=== PATIENT | female | born 1955 | race Caucasian/White ===

== ENCOUNTER 2018-05-21 13:00 | Emergency (ER) | payer MEDICAID ==
[2018-05-21] MEDS ORDERED: FLUCONAZOLE 100 MG TAB ONE (13:39)
[2018-05-21] MEDS ORDERED: SMZ./TMP. 800/160 MG TABLET ONE (13:39)
--- NOTE | 2018-05-21 13:55 | ER ---
Nurse's Notes [facility] Name: Sulema Calderón Age: 62 yrs Sex: Female : 1955 Arrival Date: 05/21/2018 Time: 13:02 Bed 30 Private MD: Out, [facility] Diagnosis: Fungal infection of skin;Cellulitis of left lower limb Presentation: 05/21 13:07 Presenting complaint: Patient states: Left foot swelling since yesterday with redness aj to top of foot. Transition of care: patient was not received from another setting of care. Onset of symptoms was May 21, 2018. Risk Assessment: Do you want to hurt yourself or someone else? Patient reports no desire to harm self or others. Initial Sepsis Screen: Does the patient meet any 2 criteria? No. Patient's initial sepsis screen is negative. Does the patient have a suspected source of infection? No. Patient's initial sepsis screen is negative. Care prior to arrival: None. 13:07 Method Of Arrival: Ambulatory 13:07 Acuity: WILFREDO 3 aj Triage Assessment: 13:10 General: Appears in no apparent distress. comfortable, obese, Behavior is calm, aj cooperative, appropriate for age. Pain: Denies pain. Neuro: Level of Consciousness is awake, alert, obeys commands, Oriented to person, place, time, situation, Appropriate for age. Respiratory: Airway is patent Respiratory effort is even, unlabored, Respiratory pattern is regular, symmetrical. Derm: Skin is pink, warm \T\ dry. normal. Musculoskeletal: Swelling present in left leg. Historical: - Allergies: 13:10 No Known Allergies; aj - Home Meds: 13:10 triamterene-hydrochlorothiazid 37.5-25 mg Oral cap 1 cap once daily [Active]; celecoxib aj 200 mg Oral cap 1 cap once daily [Active]; amlodipine 5 mg tab 1 tab once daily [Active]; levothyroxine 137 mcg tab 1 tab once daily [Active]; aspirin 81 mg Oral TbEC 1 tab once daily [Active]; oxybutynin chloride 5 mg Oral tr24 1 tab once daily [Active]; - PMHx: 13:10 Hypertension; Hypothyroidism; aj - PSHx: 13:10 Hysterectomy; Carpal Tunnel Repair; Cholecystectomy; Lap band and removal; aj - Immunization history:: Adult Immunizations up to date. - Social history:: Smoking status: Patient/guardian denies using tobacco. - Ebola Screening: : Patient negative for fever greater than or equal to 101.5 degrees Fahrenheit, and additional compatible Ebola Virus Disease symptoms Patient denies exposure to infectious person Patient denies travel to an Ebola-affected area in the 21 days before illness onset No symptoms or risks identified at this time. - Family history:: not pertinent. - Hospitalizations: : No recent hospitalization is reported. Screenin:21 Abuse screen: Denies threats or abuse. Denies injuries from another. Nutritional ca1 screening: No deficits noted. Tuberculosis screening: No symptoms or risk factors identified. Fall Risk Ambulatory Aid- Crutches/Cane/Walker (15 pts). Assessment: 13:21 General: Appears in no apparent distress. obese. General: Behavior is calm, ca1 cooperative, appropriate for age. Pain: Denies pain. Pain: Denies pain. Complains of pain in left leg Pain currently is 2 out of 10 on a pain scale. Neuro: Level of Consciousness is awake, alert, obeys commands, Oriented to person, place, time, situation. Cardiovascular: Heart tones S1 S2 present Capillary refill < 3 seconds. Respiratory: Airway is patent Respiratory effort is even, unlabored, Respiratory pattern is regular, symmetrical, Breath sounds are clear bilaterally. GI: No signs and/or symptoms were reported involving the gastrointestinal system. : No signs and/or symptoms were reported regarding the genitourinary system. EENT: No signs and/or symptoms were reported regarding the EENT system. Derm: Skin Skin is pink, warm \T\ dry. Rash noted that is on left foor red circles with clear center. Fungal looking rash. Musculoskeletal: Swelling present in right foot, left foot, right leg and left leg. 14:06 Reassessment: Patient appears in no apparent distress at this time. Patient is alert, ca1 oriented x 3, equal unlabored respirations, skin warm/dry/pink. Vital Signs: 13:10 BP 151 / 61; Pulse 80; Resp 20; Temp 97.4; Pulse Ox 94% on R/A; Weight 196.86 kg; aj Height 5 ft. 3 in. (160.02 cm); 14:06 BP 150 / 79; Pulse 81; Resp 19; Pulse Ox 95% on R/A; ca1 13:10 Body Mass Index 76.88 (196.86 kg, 160.02 cm) ED Course: 13:02 Patient arrived in ED. sb2 13:03 Out, of Town is Private Physician. sb2 13:08 Triage completed. aj 13:10 Arm band placed on right wrist. Patient placed in an exam room. aj 13:13 Jefferson Boothe MD is Attending Physician. rn 13:21 Ana Maria Rizvi RN is Primary Nurse. ca1 13:21 Patient has correct armband on for positive identification. Bed in low position. Call ca1 light in reach. Side rails up X 1. Pulse ox on. NIBP on. 14:06 No provider procedures requiring assistance completed. Patient did not have IV access ca1 during this emergency room visit. Administered Medications: 13:31 Drug: DiFLUcan 200 mg Route: PO; ca1 14:08 Follow up: Response: No adverse reaction ca1 13:31 Drug: Bactrim (160 mg-800 mg (DS) 1 tablet Route: PO; ca1 14:07 Follow up: Response: No adverse reaction ca1 Outcome: 13:54 Discharge ordered by . rn 14:06 Discharged to home via wheelchair. ca1 14:06 Condition: stable 14:06 Discharge instructions given to patient, Instructed on discharge instructions, follow up and referral plans. medication usage, Demonstrated understanding of instructions, follow-up care, medications, Prescriptions given X 3. 14:08 Patient left the ED. ca1 Signatures: Delia Chance RN RN Jefferson Mclaughlin MD MD rn Billeau, Sheri sb2 Ana Maria Rizvi RN RN ca1
--- NOTE | 2018-05-21 13:55 | EDPHYS ---
Physician Documentation [facility] Name: Sulema Calderón Age: 62 yrs Sex: Female : 1955 Arrival Date: 05/21/2018 Time: 13:02 Bed 30 Private MD: Out, of [facility], [facility] ED Physician Jefferson Boothe HPI: 05/21 13:51 This 62 yrs old Female presents to ER via Ambulatory with complaints of Leg rn Swelling, Foot Pain. 13:51 The patient presents with pain, swelling. The complaints affect the left foot. Onset: rn The symptoms/episode began/occurred today. Modifying factors: The symptoms are alleviated by nothing, the symptoms are aggravated by nothing. Severity of symptoms: At their worst the symptoms were mild, in the emergency department the symptoms are unchanged. The patient has not experienced similar symptoms in the past. Reports chronic intermittent swelling of both feet, today noticed rash to left foot, no injury, no fever. . Historical: - Allergies: 13:10 No Known Allergies; aj - Home Meds: 13:10 triamterene-hydrochlorothiazid 37.5-25 mg Oral cap 1 cap once daily [Active]; celecoxib aj 200 mg Oral cap 1 cap once daily [Active]; amlodipine 5 mg tab 1 tab once daily [Active]; levothyroxine 137 mcg tab 1 tab once daily [Active]; aspirin 81 mg Oral TbEC 1 tab once daily [Active]; oxybutynin chloride 5 mg Oral tr24 1 tab once daily [Active]; - PMHx: 13:10 Hypertension; Hypothyroidism; aj - PSHx: 13:10 Hysterectomy; Carpal Tunnel Repair; Cholecystectomy; Lap band and removal; aj - Immunization history:: Adult Immunizations up to date. - Social history:: Smoking status: Patient/guardian denies using tobacco. - Ebola Screening: : Patient negative for fever greater than or equal to 101.5 degrees Fahrenheit, and additional compatible Ebola Virus Disease symptoms Patient denies exposure to infectious person Patient denies travel to an Ebola-affected area in the 21 days before illness onset No symptoms or risks identified at this time. - Family history:: not pertinent. - Hospitalizations: : No recent hospitalization is reported. ROS: 13:51 Constitutional: Negative for fever, chills, and weight loss, Eyes: Negative for injury, rn pain, redness, and discharge, Cardiovascular: Negative for chest pain, palpitations Respiratory: Negative for shortness of breath, cough, wheezing, and pleuritic chest pain, Abdomen/GI: Negative for abdominal pain, nausea, vomiting, diarrhea, and constipation, MS/Extremity: Negative for injury and deformity, Skin: + rash to left foot Neuro: Negative for headache, weakness, numbness, tingling, and seizure. Exam: 13:51 Constitutional: Overweight female, no acute distress MS/ Extremity: Pulses equal, no rn cyanosis. Neurovascular intact. Full, normal range of motion. Equal circumference. + pitting edema bilateral lower extremities, + rash with raised borders, scaly skin, and central clearing, no fluctuance. Vital Signs: 13:10 BP 151 / 61; Pulse 80; Resp 20; Temp 97.4; Pulse Ox 94% on R/A; Weight 196.86 kg; aj Height 5 ft. 3 in. (160.02 cm); 14:06 BP 150 / 79; Pulse 81; Resp 19; Pulse Ox 95% on R/A; ca1 13:10 Body Mass Index 76.88 (196.86 kg, 160.02 cm) aj MDM: 13:13 Patient medically screened. rn 13:51 Differential diagnosis: cellulitis, fungal infection. Data reviewed: vital signs, rn nurses notes, and as a result, I will discharge patient. Counseling: I had a detailed discussion with the patient and/or guardian regarding: the historical points, exam findings, and any diagnostic results supporting the discharge/admit diagnosis, the need for outpatient follow up, to return to the emergency department if symptoms worsen or persist or if there are any questions or concerns that arise at home. Special discussion: I discussed with the patient/guardian in detail that at this point there is no indication for admission to the hospital. It is understood, however, that if the symptoms persist or worsen the patient needs to return immediately for re-evaluation. Administered Medications: 13:31 Drug: DiFLUcan 200 mg Route: PO; ca1 14:08 Follow up: Response: No adverse reaction ca1 13:31 Drug: Bactrim (160 mg-800 mg (DS) 1 tablet Route: PO; ca1 14:07 Follow up: Response: No adverse reaction ca1 Disposition: 05/21/18 13:54 Discharged to Home. Impression: Fungal infection of skin, Cellulitis of left lower limb. - Condition is Stable. - Discharge Instructions: Cellulitis, Adult, Fungal Nail Infection. - Prescriptions for Fluconazole 150 mg Oral Tablet - take 1 tablet by ORAL route once daily; 3 tablet. Bactrim DS 800- 160 mg Oral Tablet - take 1 tablet by ORAL route every 12 hours for 10 days; 20 tablet. Nystatin- Triamcinolone 100,000-0.1 unit/gram-% Topical Ointment - apply 1 application by TOPICAL route 2 times per day; 1 tube. - Medication Reconciliation Form, Thank You Letter, Antibiotic Education, Prescription Opioid Use form. - Follow up: Private Physician; When: As needed; Reason: Recheck today's complaints, Re-evaluation by your physician. - Problem is new. - Symptoms have improved. Signatures: Delia Chance RN RN Jefferson Mclaughlin MD MD rn Acob, Ana Maria RN RN ca1 Corrections: (The following items were deleted from the chart) 14:08 13:54 05/21/2018 13:54 Discharged to Home. Impression: Fungal infection of skin; ca1 Cellulitis of left lower limb. Condition is Stable. Forms are Medication Reconciliation Form, Thank You Letter, Antibiotic Education, Prescription Opioid Use. Follow up: Private Physician; When: As needed; Reason: Recheck today's complaints, Re-evaluation by your physician. Problem is new. Symptoms have improved. rn
== END 2018-05-21 14:08 | disposition home or self-care (01) ==
LOC: ER 13:00
DX: L03.116 Cellulitis of left lower limb (principal); B35.3 Tinea pedis; R21 Rash and other nonspecific skin eruption; I10 Essential (primary) hypertension; E03.9 Hypothyroidism, unspecified; Z79.82 Long term (current) use of aspirin
CPT/HCPCS: 99283

== ENCOUNTER 2018-05-30 10:28 | Emergency (ER) | payer MEDICAID ==
--- OUTSIDE RECORDS SUMMARY | 2018-05-30 10:30 | XMS REPORT ---
:1955 Author Organization [facility] Address [address] [place] [address] Care Team Providers Name Role Phone NONE Primary Care Provider Unavailable MIGUEL TALBOT M.D. Unavailable Unavailable Problems This patient has no known problems. Allergies, Adverse Reactions, Alerts This patient has no known allergies or adverse reactions. Medications This patient has no known medications. Encounters Start End Encounter Admission Attending Care Care Encounter Date/Time Date/Time Type Type Clinicians Facility Department ID 2017-04-02 2017-04-04 Inpatient C DAHIANA [facility] [id number] 08:12:00 13:55:00 Tiki RIVERA 2016-12-16 2016-12-16 Emergency E [facility] [id number] 17:51:00 17:51:00 Results Test Description Test Time Test Comments Text Results Atomic Results Result Comments CBC with Differential 2017-04-03 06:05:00 Test Item Value Reference Range Comments WBC (test code=WBC) 5.7 K/cumm 4.4-10.5 RBC (test code=RBC) 3.64 M/cumm 3.75-5.20 Hemoglobin (test code=HGB) 12.0 gm/dL 12.2-14.8 Hematocrit (test code=HCT) 36.8 % 36.5-44.4 MCV (test code=MCV) 100.9 fL 80-100 MCH (test code=MCH) 33.0 pg 27.0-32.5 MCHC (test code=MCHC) 32.7 g/dL 32.0-37.5 RDW (test code=RDW) 12.8 % 11.5-14.5 Platelet Count (test code=PLTCT) 232 K/cumm 140-440 MPV (test code=MPV) 6.7 fL Diff Method (test code=DIFFM) Auto Neutrophil (test code=NEUT) 67.3 % 36-70 Lymphocyte (test code=LYMPH) 27.1 % 12-44 Monocyte (test code=MONO) 5.0 % 0-11 Eosinophil (test code=EOS) 0.3 % 0-7 Basophil (test code=BASO) 0.2 % 0-2 Neutro Abs (test code=ANEUT) 3.8 K/cumm 1.6-7.4 Lymph Abs (test code=ALYMPH) 1.5 K/cumm 0.5-4.6 Bell Abs (test code=AMONO) 0.3 K/cumm 0.0-1.2 Eos Abs (test code=AEOS) 0.02 K/cumm 0.00-0.74 Baso Abs (test code=ABASO) 0.0 K/cumm 0.00-0.21 Comprehensive Metabolic [id number] 05:46:00 Test Item Value Reference Range Comments Sodium (test code=NA) 138 mmol/L 135-145 Potassium (test code=K) 4.3 mmol/L 3.5-5.1 Chloride (test code=CL) 100 mmol/L 98-105 Carbon Dioxide (test 32 mmol/L 22-29 code=CO2) Glucose (test code=GLU) 86 mg/dL 70-115 Blood Urea Nitrogen 11 mg/dL 8-23 (test code=BUN) Creatinine (test 0.9 mg/dL 0.5-0.9 code=CREAT) Calcium (test code=CA) 8.6 mg/dL 8.3-10.5 Prot Total (test 6.1 g/dL 6.4-8.3 code=TP) Albumin (test code=ALB) 3.2 g/dL 3.5-5.2 A/G Ratio (test 1.1 Ratio code=AGRATIO) Globulin (test 2.9 2.9-3.1 code=GLOB) Bili Total (test 0.7 mg/dL 0.1-0.9 code=TBIL) Alk Phos (test 71 U/L 35-104 code=APHOS) AST (test code=AST) 53 U/L 1-32 ALT (test code=ALT) 39 U/L 1-33 BUN/Creatinine Ratio 12.2 (test code=BCRATIO) Anion Gap (test 6 mmol/L 7-16 code=AGAP) Estimated GFR (test >60 mL/min/1.73m2 eGFR (estimated Glomerular code=GFR) Filtration Rate) is an estimated value,calculated from the patient's serum creatinine using the MDRD equation.It is NOT the patient's actual GFR. The eGFR provides a more clinicallyuseful measure of kidney disease than serum creatinine alone.This calculation takes sex and race into account, if the informationis provided. If the race is not provided, and the patient isAfrican-Portuguese, multiply by 1.212. If sex is not provided, and thepatient is female, multiply by 0.742. Results for patients <18 years ofage have not been validated by the MDRD study and should be interpretedwith caution.eGFR Result Interpretation:eGFR > or=60 is in the Normal RangeeGFR < 60 may mean kidney diseaseeGFR < 15 may mean kidney failureRanges recommended by the National Kidney Foundation,http://nkdep.nih .gov
--- NOTE | 2018-05-30 13:21 | ER ---
Nurse's Notes [facility] Name: Sulema Calderón Age: 62 yrs Sex: Female : 1955 Arrival Date: 05/30/2018 Time: 10:32 Bed 25 Private MD: Out, [facility] Diagnosis: Allergy status to sulfonamides status;Tinea pedis Presentation: 05/30 10:34 Presenting complaint: Patient states: i am returning from the when i was here about tw2 my LEFT foot, they said it was a fungal infection and not it is spreading up my left calf and also i am having a rash on my upper torso and face that started day before yesterday and my legs are swelling. Transition of care: patient was not received from another setting of care. Onset of symptoms was May 30, 2018. Risk Assessment: Do you want to hurt yourself or someone else? Patient reports no desire to harm self or others. Initial Sepsis Screen: Does the patient meet any 2 criteria? No. Patient's initial sepsis screen is negative. Does the patient have a suspected source of infection? No. Patient's initial sepsis screen is negative. Care prior to arrival: None. 10:34 Method Of Arrival: Wheelchair tw2 10:34 Acuity: WILFREDO 3 tw2 Triage Assessment: 10:36 General: Appears in no apparent distress. obese, Behavior is cooperative, appropriate tw2 for age. Pain: Complains of pain in left leg. Historical: - Home Meds: 10:37 amlodipine 5 mg tab 1 tab once daily [Active]; aspirin 81 mg Oral TbEC 1 tab once daily tw2 [Active]; celecoxib 200 mg Oral cap 1 cap once daily [Active]; levothyroxine 137 mcg tab 1 tab once daily [Active]; oxybutynin chloride 5 mg Oral tr24 1 tab once daily [Active]; triamterene-hydrochlorothiazid 37.5-25 mg Oral cap 1 cap once daily [Active]; - PMHx: 10:37 Hypertension; Hypothyroidism; Obesity; tw2 - PSHx: 10:37 Hysterectomy; Carpal Tunnel Repair; Cholecystectomy; Lap band and removal; tw2 - Immunization history:: Adult Immunizations. - Social history:: Smoking status: Patient/guardian denies using tobacco. - Ebola Screening: : Patient denies travel to an Ebola-affected area in the 21 days before illness onset. Screenin:40 Abuse screen: Denies threats or abuse. Denies injuries from another. Nutritional ca1 screening: No deficits noted. Tuberculosis screening: No symptoms or risk factors identified. Fall Risk None identified. Assessment: 12:40 General: Appears in no apparent distress. obese, Behavior is calm, cooperative, ca1 appropriate for age. Pain: Denies pain. Neuro: Level of Consciousness is awake, alert, obeys commands, Oriented to person, place, time, situation. Cardiovascular: Heart tones S1 S2 present Capillary refill < 3 seconds Patient's skin is warm and dry. Respiratory: Airway is patent Respiratory effort is even, unlabored, Respiratory pattern is regular, symmetrical, Breath sounds are clear bilaterally. GI: Abdomen is round non-distended, Bowel sounds present X 4 quads. Abd is soft and non tender X 4 quads. : No signs and/or symptoms were reported regarding the genitourinary system. EENT: No signs and/or symptoms were reported regarding the EENT system. Derm: Skin is pink, warm \T\ dry. Rash noted that is urticaria, on abdomen and left leg. Musculoskeletal: Circulation, motion, and sensation intact. Swelling present in right leg and left leg. 13:30 Reassessment: Patient appears in no apparent distress at this time. Patient and/or ca1 family updated on plan of care and expected duration. Pain level reassessed. Patient is alert, oriented x 3, equal unlabored respirations, skin warm/dry/pink. Vital Signs: 10:36 BP 144 / 60; Pulse 67; Resp 18; Temp 98.2(TE); Pulse Ox 100% on R/A; Pain 8/10; tw2 12:40 BP 140 / 65; Pulse 65; Resp 18; Pulse Ox 100% on R/A; ca1 13:30 BP 141 / 63; Pulse 63; Resp 18; Pulse Ox 100% on R/A; ca1 ED Course: 10:32 Patient arrived in ED. sb2 10:33 Out, of Town is Private Physician. sb2 10:36 Triage completed. tw2 10:36 Arm band placed on. tw2 12:13 Fabi Barker F[facility]-C [facility]. snw 12:13 Omar Curtis MD is Attending Physician. snw 12:40 Patient has correct armband on for positive identification. Bed in low position. Call ca1 light in reach. Side rails up X 1. Pulse ox on. NIBP on. Warm blanket given. Head of bed elevated. 12:52 Ana Maria Rizvi, RN is Primary Nurse. ca1 13:38 No provider procedures requiring assistance completed. Patient did not have IV access ca1 during this emergency room visit. Administered Medications: 13:25 Drug: Atarax 50 mg Route: PO; ca1 13:33 Follow up: Response: Medication administered at discharge. ca1 13:26 Drug: DiFLUcan 200 mg Route: PO; ca1 13:33 Follow up: Response: No adverse reaction; Medication administered at discharge. ca1 Outcome: 13:19 Discharge ordered by MD. snw 13:38 Discharged to home via wheelchair. ca1 13:38 Condition: stable 13:38 Discharge instructions given to patient, Instructed on discharge instructions, follow up and referral plans. medication usage, Demonstrated understanding of instructions, follow-up care, medications, Prescriptions given X 2. 13:38 Patient left the ED. ca1 Signatures: Fabi Barker, [employer] ASSOCIATE-C [employer] ASSOCIATE-Csnw Luba Felton RN RN tw2 Cami Morrison sb2 Ana Maria Rizvi, RN RN ca1 Corrections: (The following items were deleted from the chart) 10:36 10:34 Presenting complaint: Patient states: i am returning from the 5th when i was here tw2 about my LEFT foot, they said it was a fungal infection and not it is spreading up my left calf and also i am having a rash on my upper torso and face that started day before yesterday tw2
--- NOTE | 2018-05-30 13:21 | EDPHYS ---
Physician Documentation [facility] Name: Sulema Calderón Age: 62 yrs Sex: Female : 1955 Arrival Date: 05/30/2018 Time: 10:32 Bed 25 Private MD: Out, [facility] ED Physician Omar Curtis HPI: 05/30 14:18 This 62 yrs old Female presents to ER via Wheelchair with complaints of Rash. snw 14:18 The patient's rash thought to be caused by allergies. The rash is located on the body snw diffusely. The rash can be described as erythematous, papular. Onset: The symptoms/episode began/occurred suddenly, 2 day(s) ago, and became persistent. Associated signs and symptoms: Pertinent positives: itching. Severity of symptoms: At their worst the symptoms were moderate. The patient has not experienced similar symptoms in the past. The patient has been recently seen by a physician: given "medication for fungal infection", pt showed medications to me, triamcinolone oint and Bactrim. Encouraged pt to stop taking Bactrim immediately. Historical: - Home Meds: 10:37 amlodipine 5 mg tab 1 tab once daily [Active]; aspirin 81 mg Oral TbEC 1 tab once daily tw2 [Active]; celecoxib 200 mg Oral cap 1 cap once daily [Active]; levothyroxine 137 mcg tab 1 tab once daily [Active]; oxybutynin chloride 5 mg Oral tr24 1 tab once daily [Active]; triamterene-hydrochlorothiazid 37.5-25 mg Oral cap 1 cap once daily [Active]; - PMHx: 10:37 Hypertension; Hypothyroidism; Obesity; tw2 - PSHx: 10:37 Hysterectomy; Carpal Tunnel Repair; Cholecystectomy; Lap band and removal; tw2 - Immunization history:: Adult Immunizations. - Social history:: Smoking status: Patient/guardian denies using tobacco. - Ebola Screening: : Patient denies travel to an Ebola-affected area in the 21 days before illness onset. ROS: 14:18 Constitutional: Negative for fever, chills, and weight loss, Eyes: Negative for injury, snw pain, redness, and discharge, ENT: Negative for injury, pain, and discharge, Neck: Negative for injury, pain, and swelling, Cardiovascular: Negative for chest pain, palpitations, and edema, Respiratory: Negative for shortness of breath, cough, wheezing, and pleuritic chest pain, Abdomen/GI: Negative for abdominal pain, nausea, vomiting, diarrhea, and constipation, Back: Negative for injury and pain, : Negative for injury, bleeding, discharge, and swelling, MS/Extremity: Negative for injury and deformity, Neuro: Negative for headache, weakness, numbness, tingling, and seizure, Psych: Negative for depression, anxiety, suicide ideation, homicidal ideation, and hallucinations. 14:18 Skin: Positive for rash, diffusely, s/p taking medications for tinea pedis. Exam: 14:16 Constitutional: This is a well developed, well nourished patient who is awake, alert, snw and in no acute distress. Head/Face: Normocephalic, atraumatic. Eyes: Pupils equal round and reactive to light, extra-ocular motions intact. Lids and lashes normal. Conjunctiva and sclera are non-icteric and not injected. Cornea within normal limits. Periorbital areas with no swelling, redness, or edema. ENT: Nares patent. No nasal discharge, no septal abnormalities noted. Tympanic membranes are normal and external auditory canals are clear. Oropharynx with no redness, swelling, or masses, exudates, or evidence of obstruction, uvula midline. Mucous membranes moist. Neck: Trachea midline, no thyromegaly or masses palpated, and no cervical lymphadenopathy. Supple, full range of motion without nuchal rigidity, or vertebral point tenderness. No Meningismus. Chest/axilla: Normal chest wall appearance and motion. Nontender with no deformity. No lesions are appreciated. Cardiovascular: Regular rate and rhythm with a normal S1 and S2. No gallops, murmurs, or rubs. Normal PMI, no JVD. No pulse deficits. Respiratory: Lungs have equal breath sounds bilaterally, clear to auscultation and percussion. No rales, rhonchi or wheezes noted. No increased work of breathing, no retractions or nasal flaring. 14:16 Back: No spinal tenderness. No costovertebral tenderness. Full range of motion. MS/ Extremity: Pulses equal, no cyanosis. Neurovascular intact. Full, normal range of motion. Neuro: Awake and alert, GCS 15, oriented to person, place, time, and situation. Cranial nerves II-XII grossly intact. Motor strength 5/5 in all extremities. Sensory grossly intact. Cerebellar exam normal. Normal gait. Psych: Awake, alert, with orientation to person, place and time. Behavior, mood, and affect are within normal limits. 14:16 Abdomen/GI: Inspection: obese Bowel sounds: normal. 14:16 Skin: Appearance: normal except for affected area, urticaria, and is diffusely located, pt also has peeling skin and tinea like infection to dorsum of left foot and to lateral left leg. Vital Signs: 10:36 BP 144 / 60; Pulse 67; Resp 18; Temp 98.2(TE); Pulse Ox 100% on R/A; Pain 8/10; tw2 12:40 BP 140 / 65; Pulse 65; Resp 18; Pulse Ox 100% on R/A; ca1 13:30 BP 141 / 63; Pulse 63; Resp 18; Pulse Ox 100% on R/A; ca1 MDM: 13:05 Patient medically screened. snw 14:15 Data reviewed: vital signs, nurses notes. Data interpreted: Pulse oximetry: on room air snw is 100 %. Interpretation: normal. Counseling: I had a detailed discussion with the patient and/or guardian regarding: the historical points, exam findings, and any diagnostic results supporting the discharge/admit diagnosis, the need for outpatient follow up, to return to the emergency department if symptoms worsen or persist or if there are any questions or concerns that arise at home. Special discussion: I have referred the patient to see his PCP for further evaluation of high blood pressure. I discussed in detail with the patient the higher chance of wound infection based on his presenting history. Based on the history and exam findings, there is no indication for further emergent testing or inpatient evaluation. I discussed with the patient/guardian the need to see the glass technician/installer for further evaluation of the symptoms. I discussed with the patient/guardian the need to see the product operations associate for further evaluation of the symptoms. I discussed with the patient/guardian the need to see the primary care provider for further evaluation of the symptoms. Administered Medications: 13:25 Drug: Atarax 50 mg Route: PO; ca1 13:33 Follow up: Response: Medication administered at discharge. ca1 13:26 Drug: DiFLUcan 200 mg Route: PO; ca1 13:33 Follow up: Response: No adverse reaction; Medication administered at discharge. ca1 Disposition: 18:26 Co-signature as Attending Physician, Omar Curtis MD I agree with the assessment and kdr plan of care. Disposition: 05/30/18 13:19 Discharged to Home. Impression: Allergy status to sulfonamides status, Tinea pedis. - Condition is Stable. - Discharge Instructions: Allergies, Adult, Athlete's Foot. - Prescriptions for Vistaril 25 mg Oral capsule - take 1 capsule by ORAL route 3 times per day As needed; 24 capsule. Fluconazole 150 mg Oral Tablet - take 1 tablet by ORAL route once daily; 10 tablet. - Medication Reconciliation Form, Thank You Letter, Antibiotic Education, Prescription Opioid Use form. - Follow up: Private Physician; When: 5 - 6 days; Reason: Recheck today's complaints, Continuance of care, Re-evaluation by your physician. Follow up: Emergency Department; When: As needed; Reason: Worsening of condition. - Notes: Stop Bactrim. Signatures: Omar Curtis MD MD [facility]i Barker, NIGHT BAKER-C NIGHT BAKER-[facility] Luba Felton RN RN tw2 Ana Maria Rizvi, RN RN ca1 Corrections: (The following items were deleted from the chart) 13:38 13:19 05/30/2018 13:19 Discharged to Home. Impression: Allergy status to sulfonamides ca1 status; Tinea pedis. Condition is Stable. Forms are Medication Reconciliation Form, Thank You Letter, Antibiotic Education, Prescription Opioid Use. Follow up: Private Physician; When: 5 - 6 days; Reason: Recheck today's complaints, Continuance of care, Re-evaluation by your physician. Follow up: Emergency Department; When: As needed; Reason: Worsening of condition. snw
[2018-05-30] MEDS ORDERED: FLUCONAZOLE 100 MG TAB ONE (13:37)
[2018-05-30] MEDS ORDERED: hydrOXYzine HCl 25 MG TAB ONE (13:37)
== END 2018-05-30 13:38 | disposition home or self-care (01) ==
LOC: ER 10:28
DX: B35.3 Tinea pedis (principal); Z88.2 Allergy status to sulfonamides; I10 Essential (primary) hypertension; E03.9 Hypothyroidism, unspecified; E66.9 Obesity, unspecified; Z79.82 Long term (current) use of aspirin
CPT/HCPCS: 99283

== ENCOUNTER 2018-11-20 06:28 | Day surgery (SDC) | payer MEDICAID ==
[2018-11-18 15:39] LABS: Hematocrit 41.8 % (36.0-45.0); Lymphocytes % 34.9 % (15.3-44.8); MPV 7.6 fL (7.6-11.3); RBC Red Blood Cell Count 4.13 M/uL (3.86-4.86)
[2018-11-18 15:40] LABS: Absolute Lymphocytes (CBC) 1.6 K/uL (0.7-4.9); Basophils % 0.7 % (0-1.3)
[2018-11-18 15:53] LABS: Potassium 4.1 mmol/L (3.5-5.1)
--- NOTE | 2018-11-18 16:37 | RAD REPORT ---
EXAM DESCRIPTION: Bam Viera (2 Views)11/18/2018 3:35 pm CLINICAL HISTORY: Hypertension/preop exam for hernia repair COMPARISON: None FINDINGS: A few areas of scarring or subsegmental atelectasis are present within the right middle l obe. Left lung appears clear of acute infiltrate. The heart is normal size
--- NOTE | 2018-11-19 07:37 | EKG ---
Test Date: 2018-11-18 Test Time: 15:17:32 Screw Machine Hand: NIKI MEASUREMENT RESULTS: Intervals: Rate: 72 [place]: 158 QRSD: 86 QT: 412 QTc: 451 [place]: P: 48 [place]: 158 QRS: 4 T: 53 INTERPRETIVE STATEMENTS: Normal sinus rhythm Normal ECG Compared to ECG 08/04/2006 10:09:16 No significant changes Electronically Signed On 11-19-18 07:36:51 CDT by Luiz Carr
--- OUTSIDE RECORDS SUMMARY | 2018-11-20 06:31 | XMS REPORT ---
:1955 [facility] [address] [place] [address] Care Team Providers Name Role Phone FRANCIEANGIEZAKI Primary Care Provider Unavailable MIGUEL TALBOT M.D. Unavailable Unavailable Problems This patient has no known problems. Allergies, Adverse Reactions, Alerts This patient has no known allergies or adverse reactions. Medications This patient has no known medications. Encounters Start End Encounter Admission Attending Care Care Encounter Date/Time Date/Time Type Type Clinicians Facility Department ID 2017-04-02 2017-04-04 Inpatient C [facility] [id number] 08:12:00 13:55:00 Tiki RIVERA 2016-12-16 2016-12-16 Emergency E [facility] [id number] 17:51:00 17:51:00 Results Test Description Test Time Test Comments Text Results Atomic Results Result Comments [facility] 2018-07-15 12:36:09 Patient: CHAKA BRAN Screening Bilateral Date/Time07/12/2018 11:22 CDTReason for ExamMAMMO SCREENINGReportCAD MAMMOGRAM: With tomocenthesisCOMPARISON: 03/29/2017CLINICAL INFORMATION: ScreeningRoutine mediolateral and craniocaudal films of the breasts are made. No mass lesion is detected. No malignant appearing calcifications are seen. There is no evidence of skin thickening, nipple retraction or abnormal microcalcification.Both breast show predominantly scattered fibroglandular densities throughout.IMPRESSION: There is no mammographic evidence of malignancy.BI-RADS: Category 2 - Benign - Routine mammography screening.Patient has been entered into an automated recall system regarding future mammogram followup. Final Dictated by: MD Wayne Craig ADictated DT/TM: 07/15/2018 12:35 pmSigned by: MD Wayne Craig ASigned (Electronic Signature): 07/15/2018 12:36 pm XR Chest 2 Views 2018-06-20 11:57:33 Patient: CHAKA BRAN Date/Time06/20/2018 11:47 CSTReason for ExamcoughReportXR CHEST 2 VIEWSDIAGNOSIS: Cough, hypertension and sleep apneaThe heart and mediastinum are normal. Linear fibrosis is noted in the left upper lobe and right middle lobe. No consolidation or pleural fluid is seen. Thoracic dextroscoliosis and spondylosis are seen.IMPRESSION: Bilateral linear fibrosis. Final Dictated by: MD Samayoa Michael JackDictated DT/TM: 06/20/2018 11:56 amSigned by: MD Samayoa Michael JackSigned (Electronic Signature): 06/20/2018 11:57 am CBC with Differential 2017-04-03 06:05:00 Test Item [...] Lymph Abs (test code=ALYMPH) 1.5 K/cumm 0.5-4.6 Andrew Abs (test code=AMONO) 0.3 K/cumm 0.0-1.2 Eos Abs (test code=AEOS) 0.02 K/cumm 0.00-0.74 Baso Abs (test code=ABASO) 0.0 K/cumm 0.00-0.21 Comprehensive Metabolic [id number] 05:46:00 Test Item Value Reference Range Comments [...] race is not provided, and the patient isAfrican-Danish, multiply by 1.212. If sex is not [...]
[2018-11-20] MEDS ORDERED: Ringers Lactate 1,000 ML IV ONE (06:39)
[2018-11-20] MEDS ORDERED: BUPIVACAINE 0.5% PF 10 ML VIAL ONE (07:09)
[2018-11-20] MEDS ORDERED: FENTANYL CITR 100 MCG/2 ML ONE (07:21)
[2018-11-20] MEDS ORDERED: PROPOFOL 200 MG/20 ML VIAL IV ONE (07:22)
[2018-11-20] MEDS ORDERED: LIDOCAINE 2% MPF 5 ML VIAL ONE (07:23)
[2018-11-20] MEDS ORDERED: MIDAZOLAM HCL 2 MG/2 ML INJ ONE (07:23)
[2018-11-20] MEDS ORDERED: ONDANSETRON 4 MG/2 ML VIAL ONE (07:24)
[2018-11-20] MEDS ORDERED: ROCURONIUM 50 MG/5 ML VIAL IV ONE ×2 (07:24→08:30)
[2018-11-20] MEDS ORDERED: CEFAZOLIN/SWI 1gm 1 GM/10 ML SYR ONE (07:28)
[2018-11-20] MEDS: CEFAZOLIN SODIUM 1 GM/VIAL ONE ×2 (07:33→08:11)
[2018-11-20] MEDS ORDERED: NEOSTIGMINE 1 MG/ML -10 ML VIAL ONE (09:05)
[2018-11-20] MEDS ORDERED: GLYCOPYRROLATE 0.2 MG/ML SYR ONE (09:05)
--- NOTE | 2018-11-20 09:19 | P.BOP ---
Preoperative diagnosis: Incarcerated Incisional ventral hernia, morbid obesity Postoperative diagnosis: same Primary procedure: Open repair of Incarcerated Incisional ventral hernia Etiology Teacher: DEEPIKA SAMUEL ([employer]) Estimated blood loss: <20cc Specimen: hernia sac Findings: incarcerated transverse colon Anesthesia: General Complications: None Drain(s): DHARA drain Transferred to: Recovery Room Condition: Good
[2018-11-20] MEDS ORDERED: MEPERIDINE HCL 50 MG/ML AMP ONE ×3 (09:39→10:08)
[2018-11-20] MEDS ORDERED: KETOROLAC 30 MG/ML INJ ONE (10:08)
[2018-11-20] MEDS ORDERED: CODEINE 30MG/APAP 300MG TAB ONE (11:20)
== END 2018-11-20 12:45 | disposition home or self-care (01) ==
LOC: OR 06:28
PROVIDERS: ATTEND Surgery
PROC: 0WQF0ZZ Repair Abdominal Wall, Open Approach (ICD-10-PCS; principal; 2018-11-20 07:30)
DX: K43.0 Incisional hernia with obstruction, without gangrene (principal); I10 Essential (primary) hypertension; G47.30 Sleep apnea, unspecified; E07.9 Disorder of thyroid, unspecified; E66.01 Morbid (severe) obesity due to excess calories; Z68.45 Body mass index [BMI] 70 or greater, adult; Z88.2 Allergy status to sulfonamides; Z83.3 Family history of diabetes mellitus; Z80.9 Family history of malignant neoplasm, unspecified; Z82.49 Family history of ischemic heart disease and other diseases of the circulatory system
CPT/HCPCS: 93005; 85025; 80048; 36415; 88302; 71046; 49561; J2704; J2710; J2250; J3010; J2175 ×3; J0690 ×2; J2405